=== PATIENT | male | born 1970 | race Caucasian/White ===

== ENCOUNTER → 2021-11-04 10:29 | Outpatient (CLI) | payer OTHER, SELFPAY | PROVIDERS: Family Provider Registered Nurse; PCP Registered Nurse; Visit Provider Nurse Practitioner Family | DX: J02.9 Acute pharyngitis, unspecified (principal) | CPT/HCPCS: 87070 ==

== ENCOUNTER → 2021-11-04 15:59 | Outpatient (CLI) | payer OTHER, SELFPAY ==
[2021-11-04 17:28] LABS: Clostridium Difficile Tox PCR Negative for C. diff (Negative)
== END ==
PROVIDERS: Family Provider Registered Nurse; PCP Registered Nurse; Referring Provider Nurse Practitioner Family; Visit Provider Nurse Practitioner Family
DX: R19.7 Diarrhea, unspecified (principal)
CPT/HCPCS: 87045; 87177; 87205; 87493

== ENCOUNTER 2021-11-04 16:21 | Emergency (ER) | payer OTHER, SELFPAY ==
[2021-11-04] VITALS (10 sets, daily range): BP systolic 107–124; BP diastolic 64–73; PULSE 78–91; RESP 18; TEMP 36.9–37.4; O2SAT 97–99; BMI 19.9
--- NOTE | 2021-11-04 19:55 | ED.NAVMDI ---
HPI - Nausea/Vomiting/Diarrhea General Chief complaint: Nausea/Vomiting/Diarrhea Stated complaint: Sick x6 days, vomiting, stomach pains, no covid Time Seen by Provider: 11/04/21 17:59 Source: patient Mode of arrival: Ambulatory Limitations: no limitations History of Present Illness HPI Narrative: Patient is a 51-year-old male. Is here for evaluation of nausea and abdominal pain and diarrhea for the past week. He states that his symptoms started when he was camping. There was 1 other individual who currently has similar symptoms like him however no other individuals that were camping with them is having any symptoms. He denies any recent antibiotics. No recent travel. Has not tried anything for his symptoms. Earlier today went to the walk-in clinic. Was tested for strep as he was also having a sore throat and also complaining of a headache. Is also tested for COVID. Both of these tests were negative. Patient continue used to have symptoms and was told to come to the emergency department for further evaluation. Related Data Previous Rx's Medication Instructions Recorded benzonatate 100 mg capsule 100 mg PO BID PRN cough #20 caps 11/04/21 metronidazole 500 mg tablet 500 mg PO BID 7 days #14 tabs 11/04/21 ondansetron 4 mg disintegrating 4 mg PO Q8H PRN nausea and 11/04/21 tablet vomiting #20 tabs Allergies Allergy/AdvReac Type Severity Reaction Status Date / Time No Known Drug Allergies Allergy Unverified 11/04/21 09:59 Review of Systems Constitutional Constitutional: Reports headache(s) Comments: Subjective fevers ENT Ears, Nose, Mouth, and Throat: Reports headache(s) Comments: Sore throat Cardiovascular Cardiovascular: Reports system reviewed and no additional complaints, except as documented Respiratory Respiratory: Reports system reviewed and no additional complaints, except as documented Gastrointestinal Gastrointestinal: Reports abdominal pain, Reports diarrhea and Reports nausea Genitourinary Genitourinary: Reports system reviewed and no additional complaints, except as documented Musculoskeletal Musculoskeletal: Reports system reviewed and no additional complaints, except as documented Integumentary/Breasts Skin/Breast: Denies rash Neurologic Neurologic: Reports headache(s) Hematologic/Lymphatic On Anticoagulants: No Patient History Medical History Leg pain Social History Smoking Status: Never smoker Smoking Status: Never smoker Substance Use Type: does not use Exam Initial Vital Signs Initial Vital Signs: Vital Signs Temperature 98.4 F 11/04/21 16:34 Pulse Rate 82 11/04/21 16:34 Respiratory Rate 18 11/04/21 16:34 Blood Pressure 124/67 11/04/21 16:34 Pulse Oximetry 99 11/04/21 16:34 Oxygen Delivery Method 11/04/21 16:34 Const General: cooperative, comfortable and well developed [facility] Head: normal to inspection and normocephalic Resp Effort & Inspection: normal respiratory effort Auscultation: clear to auscultation bilaterally Cardio Rate: regular rate Rhythm: regular rhythm GI Inspection: normal to inspection Palpation: soft, No firm and No guarding Skin General: no rashes or lesions noted Neuro General: patient alert, patient awake, patient oriented x3 and moves all extremities Extrem General: normal to inspection and capillary refill normal Psych Appearance: grossly normal and well kempt Course Orders Ordered: ED Orders 11/04/21 19:50 Complete Blood Count AUTO DIFF Stat Comprehensive Metabolic Panel Stat Lipase Stat 11/04/21 21:10 Influenza A & B (PCR) Stat Discontinued Medications Sodium Chloride (Normal Saline 0.9%) 1,000 mls @ 1,000 mls/hr IV BOLUS ONE Stop: 11/04/21 20:56 Last Infusion: 11/04/21 21:05 Dose: 0 mls/hr Documented By: Admin: 11/04/21 20:09 Dose: 1,000 mls/hr Documented By: BILLY Metronidazole (Metronidazole 500 Mg Tablet) 500 mg PO NOW ONE Stop: 11/04/21 22:12 Last Admin: 11/04/21 22:25 Dose: 500 mg Documented By: BILLY Ondansetron HCl (Ondansetron 4 Mg/2 Ml Inj) 4 mg IV NOW ONE Stop: 11/04/21 19:58 Last Admin: 11/04/21 20:09 Dose: 4 mg Documented By: BILLY Pantoprazole Sodium (Pantoprazole 40 Mg Vial) 40 mg IV NOW ONE Stop: 11/04/21 22:29 Last Admin: 11/04/21 22:34 Dose: 40 mg Documented By: BILLY Vital Signs Vital signs: Vital Signs - 8 hr 11/04/21 20:00 11/04/21 20:06 11/04/21 20:30 Temperature 99.4 F Pulse Rate 78 79 82 Respiratory Rate 18 Blood Pressure 109/72 Pulse Oximetry 98 97 99 Oxygen Delivery Method Room Air 11/04/21 21:00 11/04/21 21:01 11/04/21 21:01 Temperature Pulse Rate 91 H 86 Respiratory Rate Blood Pressure 112/73 Pulse Oximetry 99 99 Oxygen Delivery Method 11/04/21 21:30 11/04/21 21:30 11/04/21 22:00 Temperature Pulse Rate 85 Respiratory Rate Blood Pressure 107/70 107/64 Pulse Oximetry 98 Oxygen Delivery Method 11/04/21 22:00 11/04/21 22:25 11/04/21 22:30 Temperature Pulse Rate 84 88 Respiratory Rate Blood Pressure 108/72 Pulse Oximetry 98 98 Oxygen Delivery Method MDM - Nausea/Vomiting/Diarrhea Lab Data Attestation: I reviewed the patient's lab results. Result diagrams: 11/04/21 19:50 11/04/21 19:50 Labs: Lab Results 11/04/21 11/04/21 11/04/21 Range/Units 13:20 19:50 19:50 WBC 3.2 L (4.5-11.0) X10^3/uL RBC 5.57 (4.5-5.9) X10^6/uL Hgb 15.8 (13.5-17.5) g/dL Hct 47.0 (41-53) % MCV 84.3 (80-100) fL MCH 28.3 (26-34) PG MCHC 33.5 (30-36) % RDW 13.8 (11.6-14.8) % Plt Count 160 (150-400) X10^3/uL Neut % (Auto) 55.9 (50-75) % Lymph % (Auto) 19.9 L (25-40) % [place] % (Auto) 22.3 H (3-14) % Eos % (Auto) 1.5 L (2-4) % Baso % (Auto) 0.4 (0-2) % Neut # (Auto) 1800 (3302-6999) /uL Lymph # (Auto) 600 L (1604-0572) /uL [place] # (Auto) 700 (0-900) /uL Eos # (Auto) 0 (0-450) /uL Baso # (Auto) 0 (0-100) /uL Sodium 136 L (137-145) mmol/L Potassium 4.1 (3.4-5.1) mmol/L Chloride 95 L (98-107) mmol/L Carbon Dioxide 31 (22-32) mmol/L BUN 10 (9-20) mg/dL Creatinine 0.84 (0.66-1.25) mg/dL Estimated GFR > 60 (>60) mL/min BUN/Creatinine Ratio 11.9 (6-22) Glucose 97 (70-100) mg/dL Calcium 9.1 (8.4-10.2) mg/dL Total Bilirubin 0.8 (0.2-1.3) mg/dL AST 23 (17-59) IU/L ALT 19 (<50) IU/L Alkaline Phosphatase 47 (38-126) U/L Total Protein 7.7 (6.3-8.2) g/dL Albumin 4.2 (3.5-5.0) g/dL Globulin 3.5 (1.7-4.1) g/dL Albumin/Globulin Ratio 1.2 (1.0-2.8) Lipase 50 (23-300) U/L Stl C. cayetanensis PCR Not detected (Not Detect) Stool Rotavirus (PCR) Not detected (Not Detect) Stool Adenovirus (PCR) Not detected (Not Detect) Stool Astrovirus (PCR) Not detected (Not Detect) Stool Cryptosporidium PCR Not detected (Not Detect) Stl E.coli Shiga Tox PCR Detected H (Not Detect) St Sh/Enteroin Ecoli PCR Not detected (Not Detect) Stool E coli O157 PCR Not detected (Not Detect) Stl Enterotoxigenic E PCR Not detected (Not Detect) Stool EPEC (PCR) TNP Stl E. histolytica PCR Not detected (Not Detect) Stool Giardia Lamblia PCR Detected H (Not Detect) Stool Sapovirus (PCR) Not detected (Not Detect) Stl P. shigelloides PCR Not detected (Not Detect) St Y.enterocolitica PCR Not detected (Not Detect) Stool Vibrio (PCR) Not detected (Not Detect) Stl Vibrio cholerae PCR Not detected (Not Detect) Stl Enteroaggr Ecoli PCR Not detected (Not Detect) Stl Norovirus GI/GII PCR Not detected (Not Detect) Campylobacter (PCR) Not detected (Not Detect) C. difficile Tox (PCR) Not detected (Not Detect) Influenza A (RT-PCR) (NEGATIVE) Influenza B (RT-PCR) (NEGATIVE) Salmonella (PCR) Not detected (Not Detect) 11/04/21 Range/Units 21:10 WBC (4.5-11.0) X10^3/uL RBC (4.5-5.9) X10^6/uL Hgb (13.5-17.5) g/dL Hct (41-53) % MCV (80-100) fL MCH (26-34) PG MCHC (30-36) % RDW (11.6-14.8) % Plt Count (150-400) X10^3/uL Neut % (Auto) (50-75) % Lymph % (Auto) (25-40) % [place] % (Auto) (3-14) % Eos % (Auto) (2-4) % Baso % (Auto) (0-2) % Neut # (Auto) (0944-5248) /uL Lymph # (Auto) (5256-5023) /uL [place] # (Auto) (0-900) /uL Eos # (Auto) (0-450) /uL Baso # (Auto) (0-100) /uL Sodium (137-145) mmol/L Potassium (3.4-5.1) mmol/L Chloride (98-107) mmol/L Carbon Dioxide (22-32) mmol/L BUN (9-20) mg/dL Creatinine (0.66-1.25) mg/dL Estimated GFR (>60) mL/min BUN/Creatinine Ratio (6-22) Glucose (70-100) mg/dL Calcium (8.4-10.2) mg/dL Total Bilirubin (0.2-1.3) mg/dL AST (17-59) IU/L ALT (<50) IU/L Alkaline Phosphatase (38-126) U/L Total Protein (6.3-8.2) g/dL Albumin (3.5-5.0) g/dL Globulin (1.7-4.1) g/dL Albumin/Globulin Ratio (1.0-2.8) Lipase (23-300) U/L Stl C. cayetanensis PCR (Not Detect) Stool Rotavirus (PCR) (Not Detect) Stool Adenovirus (PCR) (Not Detect) Stool Astrovirus (PCR) (Not Detect) Stool Cryptosporidium PCR (Not Detect) Stl E.coli Shiga Tox PCR (Not Detect) St Sh/Enteroin Ecoli PCR (Not Detect) Stool E coli O157 PCR (Not Detect) Stl Enterotoxigenic E PCR (Not Detect) Stool EPEC (PCR) Stl E. histolytica PCR (Not Detect) Stool Giardia Lamblia PCR (Not Detect) Stool Sapovirus (PCR) (Not Detect) Stl P. shigelloides PCR (Not Detect) St Y.enterocolitica PCR (Not Detect) Stool Vibrio (PCR) (Not Detect) Stl Vibrio cholerae PCR (Not Detect) Stl Enteroaggr Ecoli PCR (Not Detect) Stl Norovirus GI/GII PCR (Not Detect) Campylobacter (PCR) (Not Detect) C. difficile Tox (PCR) (Not Detect) Influenza A (RT-PCR) Flu a negative (NEGATIVE) Influenza B (RT-PCR) Flu b negative (NEGATIVE) Salmonella (PCR) (Not Detect) MDM Narrative Medical decision making narrative: Reviewed the patient's medical records from earlier today shows that his strep test was negative. They did send stool samples for ova and parasites and also a stool culture. He was negative for C diff. A GI panel performed here in the emergency department does show E coli and also Giardia. Patient was also given fluids. He has nausea medication at home. Will send home with Flagyl. He was given return precautions and follow-up instructions and was also informed of the findings of the GI panel. He expressed understanding and agreement. Discharge Plan Departure Patient Disposition: Home Clinical Impression: Giardia, Shiga toxin-producing Escherichia coli infection Instructions: Diarrhea Activity Restrictions/Additional Instructions: It is important that you stay hydrated and use the nausea medication as directed and as needed. Is also important that you practice good hand hygiene as these infections can past 2 other individuals. Take the antibiotics as directed. Return to the emergency department for any new or worsening symptoms. Prescriptions: New metronidazole 500 mg tablet 500 mg PO BID 7 Days Qty: 14 0RF No Action benzonatate 100 mg capsule 100 mg PO BID PRN (Reason: cough) Qty: 20 0RF ondansetron 4 mg tablet,disintegrating 4 mg PO Q8H PRN (Reason: nausea and vomiting) Qty: 20 0RF Referrals: Vern Beltre ARNP [Primary Care Provider] - Visit Report Forms: Patient Portal/API
[2021-11-04] MEDS: ONDANSETRON 4 MG/2 ML INJ IV (20:09)
[2021-11-04] MEDS: SODIUM CHLORIDE 0.9% 1,000 ML 1000 ML IV (20:09)
[2021-11-04 20:10] LABS: Add Manual Diff / Slide Review NO; Basophils Absolute Auto 0 /uL (0-100); Basophils Percent Auto 0.4 % (0-2); Eosinophils Absolute Auto 0 /uL (0-450); Eosinophils Percent Auto 1.5 % (2-4); Hemoglobin 15.8 g/dL (13.5-17.5); Lymphocytes Absolute Auto 600 /uL (1100-4500); Lymphocytes Percent Auto 19.9 % (25-40); Mean Corpuscular HGB Conc 33.5 % (30-36); Mean Corpuscular Hemoglobin 28.3 PG (26-34); Mean Corpuscular Volume 84.3 fL (80-100); Monocytes Absolute Auto 700 /uL (0-900); Monocytes Percent Auto 22.3 % (3-14); Neutrophils Absolute Auto 1800 /uL (1500-7000); Neutrophils Percent Auto 55.9 % (50-75); Platelet Count 160 X10^3/uL (150-400); Red Blood Cell Count 5.57 X10^6/uL (4.5-5.9); Red Cell Distribution Width 13.8 % (11.6-14.8); White Blood Cell Count 3.2 X10^3/uL (4.5-11.0)
[2021-11-04 20:23] LABS: Alanine Aminotransferase 19 IU/L (<50); Albumin 4.2 g/dL (3.5-5.0); Albumin Globulin Ratio 1.2 (1.0-2.8); Alkaline Phosphatase 47 U/L (38-126); Aspartate Aminotransferase 23 IU/L (17-59); BUN Creatinine Ratio 11.9 (6-22); Bilirubin Total 0.8 mg/dL (0.2-1.3); Blood Urea Nitrogen 10 mg/dL (9-20); Calcium 9.1 mg/dL (8.4-10.2); Carbon Dioxide 31 mmol/L (22-32); Chloride 95 mmol/L (98-107); Estimated Glomerular Filt Rate > 60 mL/min (>60); Globulin 3.5 g/dL (1.7-4.1); Glucose 97 mg/dL (70-100); HEMOLYSIS < 15 (0-50); Lipase 50 U/L (23-300); Potassium 4.1 mmol/L (3.4-5.1); Sodium 136 mmol/L (137-145); Total Protein 7.7 g/dL (6.3-8.2)
[2021-11-04 21:50] LABS: Campylobacter Not Detected (Not Detect); Clostridium difficile toxin AB Not Detected (Not Detect); Enteroaggregative E.coli Not Detected (Not Detect); Plesiomonsa shigelloides Not Detected (Not Detect); Salmonella Not Detected (Not Detect); Vibrio Not Detected (Not Detect); Vibrio cholerae Not Detected (Not Detect); Yersinia enterocolitica Not Detected (Not Detect)
[2021-11-04 21:51] LABS: Adenovirus F 40/41 Not Detected (Not Detect); Astrovirus Not Detected (Not Detect); Cryptosporidium Not Detected (Not Detect); Cyclospora cayetanensis Not Detected (Not Detect); Entamoeba histolytica Not Detected (Not Detect); Enterotoxigenic E.coli It/st Not Detected (Not Detect); Norovirus GI/GII Not Detected (Not Detect); Rotavirus A Not Detected (Not Detect); Shigella/Enteroinvasive E.coli Not Detected (Not Detect)
[2021-11-04 22:08] LABS: Influenza A - CEPHEID Flu A NEGATIVE (NEGATIVE); Influenza B - CEPHEID Flu B NEGATIVE (NEGATIVE)
[2021-11-04] MEDS: metroNIDAZOLE 500 MG TABLET PO (22:25)
[2021-11-04] MEDS: PANTOPRAZOLE 40 MG VIAL IV (22:34)
[2021-11-05 10:13] LABS: Shiga-like toxin-prod E.coli Detected (Not Detect)
[2021-11-05 10:14] LABS: Giardia lamblia Detected (Not Detect)
[2021-11-05 10:15] LABS: Sapovirus Not Detected (Not Detect)
== END 2021-11-04 23:04 | disposition home or self-care (01) ==
PROVIDERS: Emergency Provider Emergency Medicine; Family Provider Registered Nurse; PCP Registered Nurse
DX: R19.7 Diarrhea, unspecified (principal); A49.8 Other bacterial infections of unspecified site; A07.1 Giardiasis [lambliasis]; J02.9 Acute pharyngitis, unspecified
CPT/HCPCS: 36415; 80053; 83690; 85025; 87070; 87177; 87205; 87493; 87502; 87507; 96361; 96374; 96375; 99284; C9113; J2405

== ENCOUNTER → 2023-02-27 13:53 | Outpatient (CLI) | payer OTHER, SELFPAY ==
[2023-02-27 14:39] LABS: COVID-19 CEPHEID 4-PLEX PCR Negative (Negative); Influenza A - CEPHEID Flu A NEGATIVE (NEGATIVE); Influenza B - CEPHEID Flu B NEGATIVE (NEGATIVE); Respiratory Syncytial Virus Negative (Negative)
== END ==
PROVIDERS: Family Provider Registered Nurse; PCP Registered Nurse; Visit Provider Nurse Practitioner Family
DX: R05.1 Acute cough (principal)
CPT/HCPCS: 0241U

== ENCOUNTER 2023-10-07 16:49 | Emergency (ER) | payer OTHER, SELFPAY ==
[2023-10-07 16:52] VITALS: BP 131/73; PULSE 65; RESP 14; TEMP 36.5; O2SAT 99; BMI 21.7
[2023-10-07] MEDS: TET,DIPH,PERTUSS(ACELL),VAC/PF 0.5 ML SYRINGE IM (18:16)
--- NOTE | 2023-10-07 19:13 | ED_ITS ---
HPI - Skin/Abscess/Foreign Bdy General Chief complaint: Skin/Abscess/Foreign Body Stated complaint: laceration Time Seen by Provider: 10/07/23 18:32 Source: patient Mode of arrival: Ambulatory Limitations: no limitations History of Present Illness HPI narrative: 53-year-old male was working with an awl like device, slipped with the tool, accidnetally lacerated the top of his left dorsal 3rd finger, small laceration, had bleeding that seemed to not be able to stop, here for evaluation, no other injuries, no numbness or tingling, can fully extend his fingers, and can clench his left fist without opending of the wound. He does not take blood thinner medications. Last tetanus shot greater than 5 years ago. Bleeding seemed to stop after triage. Related Data Home Medications Medication Instructions Recorded Confirmed multivitamin with minerals 1 tab PO DAILY 10/07/23 10/07/23 Allergies Allergy/AdvReac Type Severity Reaction Status Date / Time No Known Drug Allergies Allergy Verified 10/07/23 16:55 Patient History Medical History Leg pain Social History Smoking Status: Never smoker Smoking Status: Never smoker alcohol intake frequency: 0-2 drinks per day Substance Use Type: does not use Exam Narrative Exam Narrative: GENERAL: Well-developed patient, in mild distress. HEAD: Atraumatic. Normocephalic. EYES: Pupils equal round and reactive. Extraocular motions intact. No scleral icterus. No injection or drainage. ENT: Nose without bleeding, purulent drainage. Airway patent. NECK: Trachea midline. Normal range of motion neck CARDIOVASCULAR: Regular rate and rhythm without murmurs, gallops, or rubs. RESPIRATORY: Clear to auscultation. Breath sounds equal bilaterally. No wheezes, rales, or rhonchi. GASTROINTESTINAL: Abdomen nondistended appearing EXTREMITIES: Dorsal small subcentimeter laceration horizontal across dorsal left 3rd finger just distal to the PIP, seems closed now, wound stays closed even with closed fist. Good extension and flexion function, neurovascular intact. No other lacerations or injuries to the hand for further fingers. NEURO: AOx3. Nonfocal motor exam SKIN: No rash or erythema of visible areas except for finger lac desribed above Initial Vital Signs Initial Vital Signs: Vital Signs Temperature 97.7 F 10/07/23 16:52 Pulse Rate 65 10/07/23 16:52 Respiratory Rate 14 10/07/23 16:52 Blood Pressure 131/73 10/07/23 16:52 Pulse Oximetry 99 10/07/23 16:52 Oxygen Delivery Method Room Air 10/07/23 16:52 Course Orders Ordered: Discontinued Medications Diphtheria/Tetanus/Acell Pertussis (Tet,Diph,Pertuss(Acell),Vac/Pf 0.5 Ml Syringe) 0.5 ml IM .ONCE ONE Stop: 10/07/23 18:13 Last Admin: 10/07/23 18:16 Dose: 0.5 ml Documented By: CHERI Vital Signs Vital signs: Vital Signs - 8 hr 10/07/23 16:52 Temperature 97.7 F Pulse Rate 65 Respiratory Rate 14 Blood Pressure 131/73 Pulse Oximetry 99 Oxygen Delivery Method Room Air MDM - Skin/Abscess/Foreign Bdy MDM Narrative Medical decision making narrative: 53-year-old male with small horizontal left 3rd dorsal finger laceration, was n ot initially staying closed but seemed to closed after triage. On exam with me the wound seemed to stay closed even with clenched fist motion, has full extension, neurovascular intact. No wound care interventions further at this time, except for long axis dorsal finger Steri-Strips to hopefully further support the finger, and also finger splint in extension in the next few days. Wound infection warnings given. Tetanus updated. Wound check advised if signs symptoms infection, otherwise Steri-Strips should fall off. Home, improved, stable Discharge Plan Departure Patient Disposition: Home Clinical Impression: Finger laceration Activity Restrictions/Additional Instructions: Finger laceration about 2 hours prior to arrival, accidental, closed by patient prior to arrival, and it seems to be sting closed, even with clenched fist position over the flexed fingers. Full extension on exam. The wound does not seem to be with full range of motion of the fingers. You could consider x-ray to look for bony fracture, however the laceration location would have had to go through the dorsal tendon, does not seem to be involved. The wound was already closed I could not visualize the underlying structures or depth or to see if there is any partial tendon injury, could consider partial tendon injury, but excellent extension and flexion function at this time. Long axis Steri-Strips support applied, this should fall off of the next few days. Finger splint for the next few days. The wound could become infected, rechecked to this/nearest emergency department for any change worsening symptoms or any swelling symptoms or any concerns. Tetanus shot was updated given in the emergency department. Prescriptions: No Action All Purpose Multivitamin-Min Tablet 1 tab PO DAILY Referrals: Vern Beltre ARNP [Primary Care Provider] - Stand Alone Forms: Patient Portal/API
== END 2023-10-07 19:37 | disposition home or self-care (01) ==
PROVIDERS: Emergency Provider Emergency Medicine; Family Provider Registered Nurse; PCP Registered Nurse
DX: S61.213A Laceration without foreign body of left middle finger without damage to nail, initial encounter (principal); W27.8XXA Contact with other nonpowered hand tool, initial encounter; Z23 Encounter for immunization
CPT/HCPCS: 29130; 90471; 99283; 90715

== ENCOUNTER → 2023-11-05 12:03 | Outpatient (CLI) | payer OTHER, SELFPAY ==
--- NOTE | 2023-11-05 12:05 | DI.RAD.S_ITS ---
PROCEDURE: XR KNEE LT 1TO2V INDICATIONS: KNEE INJURY TECHNIQUE: 2 views of the knee were acquired. COMPARISON: [facility], , KNEE 3V RIGHT, 10/18/2016, 8:59. FINDINGS: Bones: No fractures or dislocations. No suspicious bony lesions. Soft tissues: Moderate joint effusion. No suspicious soft tissue calcifications. IMPRESSION: Moderate effusion. No visualized acute fracture or dislocation. However, if clinical concern and/or pain persist, short interval imaging followup in 7-10 days is recommended, as occult injury cannot be definitively excluded. Dictated by: Lashaun Pressley M.D. on 11/05/2023 at 12:41 Approved by: Lashaun Pressley M.D. on 11/05/2023 at 12:41
== END ==
LOC: RAD 12:04
PROVIDERS: Family Provider Registered Nurse; PCP Registered Nurse; Referring Provider Registered Nurse; Visit Provider Registered Nurse
DX: S89.92XA Unspecified injury of left lower leg, initial encounter (principal); M25.462 Effusion, left knee; X58.XXXA Exposure to other specified factors, initial encounter
CPT/HCPCS: 73560

== ENCOUNTER → 2024-04-05 16:38 | Outpatient (CLI) | payer OTHER, SELFPAY | PROVIDERS: Family Provider Registered Nurse; PCP Registered Nurse; Visit Provider Nurse Practitioner Family | DX: J02.9 Acute pharyngitis, unspecified (principal) | CPT/HCPCS: 87070 ==